=== PATIENT | female | born 1960 | race Caucasian/White ===

== ENCOUNTER 2022-06-11 01:40 | Emergency (ER) | payer MEDICAID ==
[~2022-06-11] VITALS: Ht 157.5 cm; Wt 59.1 kg
[~2022-06-11 01:40] MED LIST: IBUP-1051 PO; ONDA4TAB59 PO
[2022-06-11 01:45] VITALS: BP 174/91
[2022-06-11] MEDS ORDERED: HYDROcodone/acetaminophen 10/325mg tab PO ONE (02:50)
--- NOTE | 2022-06-11 02:53 | NUR ---
po med given
[2022-06-11] MEDS ORDERED: HYDR-3972 PO (02:58)
--- NOTE | 2022-06-11 03:17 | NUR ---
incentive spirometer teaching given. pt understood with return demo
== END 2022-06-11 03:20 | disposition home or self-care (01) ==
LOC: ER 01:42
DX: S22.31XA Fracture of one rib, right side, initial encounter for closed fracture (principal); M25.511 Pain in right shoulder; Z72.89 Other problems related to lifestyle; Z56.0 Unemployment, unspecified; Z98.891 History of uterine scar from previous surgery; Z79.899 Other long term (current) drug therapy; W01.0XXA Fall on same level from slipping, tripping and stumbling without subsequent striking against object, initial encounter; Y93.89 Activity, other specified; Y92.89 Other specified places as the place of occurrence of the external cause; Y99.8 Other external cause status
CPT/HCPCS: 71045; 99283